=== PATIENT | male | born 1985 | race Two or more races ===

== ENCOUNTER 2024-07-30 06:17 | Emergency (ER) | payer MEDICAID, OTHER ==
[~2024-07-30] VITALS: Ht 188 cm; Wt 90.7 kg
[2024-07-30] MEDS: IV NS 0.9% 1,000 ML BAG IV ONE (06:34)
[2024-07-30 06:58] LABS: BASOPHILS % (AUTO) 0.1 % (0.0-2.0); HEMATOCRIT 42 % (39-51); HEMOGLOBIN 13.8 g/dL (13.5-17.5); LYMPHOCYTES # (AUTO) 2.4 K/uL (0.8-4.8); LYMPHOCYTES % (AUTO) 17.1 % (20.0-44.0); MEAN CORPUSCULAR HEMOGLOBIN 29 PG (26.0-33.0); MEAN CORPUSCULAR HGB CONC 33 g/dl (31.0-36.0); MEAN CORPUSCULAR VOLUME 86 fL (80-96); MONOCYTES # (AUTO) 0.7 K/uL (0.1-1.30); MONOCYTES % (AUTO) 5.1 % (2.0-12.0); NEUTROPHILS # (AUTO) 10.9 K/uL (1.8-8.9); NEUTROPHILS % (AUTO) 77.7 % (43.0-81.0); PLATELET COUNT (AUTO) 327 K/uL (150-450); RED BLOOD CELL COUNT(AUTO) 4.83 MIL/uL (4.5-6.0); RED CELL DISTRIBUTION WIDTH 14.7 % (11.5-15.0); WHITE BLOOD COUNT (AUTO) 14.1 K/uL (4.3-11.0)
[2024-07-30 07:11] LABS: ALCOHOL, BLOOD < 3 mg/dL (0-10); CALCIUM, SERUM 9.2 mg/dL (8.5-10.1); CREATININE 1.7 mg/dL (0.6-1.3); GLUCOSE 189 mg/dL (74-106)
[2024-07-30] MEDS ORDERED: ONDANSETRON HCL/PF 4 MG/2 ML VIAL ONE ×3 (07:20→16:07)
[2024-07-30 07:21] LABS: CARBON DIOXIDE 18 mmol/L (21-32); CHLORIDE 94 mmol/L (98-107); SODIUM SERUM 133 mmol/L (136-145); UREA NITROGEN, BLOOD 16 mg/dL (7-18)
[2024-07-30] MEDS: ONDANSETRON HCL/PF - ER 4 MG/2 ML VIAL IV ONE ×3 (07:26→16:13)
[2024-07-30] MEDS: POTASSIUM CHLORIDE 20 MEQ TAB.PRT.SR PO ONE (08:07)
[2024-07-30 08:12] LABS: AMPHETAMINE, URINE NEGATIVE (NEGATIVE); BARBITURATE, URINE NEGATIVE (NEGATIVE); BENZODIAZEPINE, URINE NEGATIVE (NEGATIVE); CANNABINOID, URINE POSITIVE (NEGATIVE); COCCAINE, URINE NEGATIVE (NEGATIVE); OPIATE, URINE NEGATIVE (NEGATIVE); PHENCYCLIDINE SCREEN,URINE NEGATIVE (NEGATIVE)
[2024-07-30] MEDS ORDERED: CHLORDIAZEPOXIDE HCL 25 MG CAPSULE ONE (09:18)
[2024-07-30] MEDS: CHLORDIAZEPOXIDE HCL 25 MG CAPSULE PO STA (09:19)
[2024-07-30] MEDS ORDERED: METH10TA2 PO (09:26)
[2024-07-30] MEDS ORDERED: IRBE1TAB43 PO (09:26)
[2024-07-30] MEDS ORDERED: ALPR1TAB2 PO (09:26)
[2024-07-30] MEDS ORDERED: ACETAMINOPHEN ES 500 MG TABLET ONE (13:38)
[2024-07-30] MEDS: ACETAMINOPHEN ES 500 MG TABLET PO ONE (13:50)
[2024-07-30 14:57] VITALS: BP 119/71; O2SAT 99
== END 2024-07-30 16:16 | disposition short-term general hospital (02) ==
LOC: ER 06:19
DX: R56.9 Unspecified convulsions (principal); Z20.822 Contact with and (suspected) exposure to COVID-19
CPT/HCPCS: 99285; 96374; 96361; 93005; 96376; 70450; 85025; 80048; 36415; 87426; 80320; 80307; J2405 ×3; J7030; G0480

== ENCOUNTER 2025-07-19 06:03 | Emergency (ER) | payer MEDICAID ==
[~2025-07-19] VITALS: Ht 188 cm; Wt 95.3 kg
[~2025-07-19 06:03] MED LIST: ALPR1TAB2 PO; IRBE1TAB43 PO; METH10TA2 PO
[2025-07-19] MEDS ORDERED: GABAPENTIN 300 MG CAPSULE ONE (07:06)
[2025-07-19] MEDS ORDERED: ONDANSETRON HCL/PF 4 MG/2 ML VIAL ONE (07:06)
[2025-07-19] MEDS: GABAPENTIN 100 MG CAPSULE PO ONE (07:07)
[2025-07-19] MEDS: ONDANSETRON HCL/PF 4 MG/2 ML VIAL IVP ONE (07:07)
[2025-07-19] MEDS: IV NS 0.9% 1,000 ML BAG IV ONE (07:07)
[2025-07-19 07:11] LABS: PLATELET COUNT (AUTO) 216 K/uL (150-450); RED BLOOD CELL COUNT(AUTO) 4.69 MIL/uL (4.5-6.0); RED CELL DISTRIBUTION WIDTH 14.4 % (11.5-15.0); WHITE BLOOD COUNT (AUTO) 7.1 K/uL (4.3-11.0)
[2025-07-19 07:21] LABS: CALCIUM, SERUM 8.9 mg/dL (8.5-10.1); CREATININE 1.3 mg/dL (0.6-1.3); SODIUM SERUM 142.0 mmol/L (136-145); UREA NITROGEN, BLOOD 12.0 mg/dL (7-18)
[2025-07-19 07:27] LABS: ASPARTATE AMINOTRANSFERASE 25.0 U/L (15-37); TOTAL PROTEIN, SERUM 7.5 g/dL (6.4-8.2)
[2025-07-19] MEDS ORDERED: GABA600T12 PO (07:42)
[2025-07-19] MEDS ORDERED: ONDA4TAB5 PO (07:42)
[2025-07-19 07:56] VITALS: BP 170/98; TEMP 98.3; O2SAT 98
== END 2025-07-19 08:26 | disposition home or self-care (01) ==
LOC: ER 06:10
DX: R11.2 Nausea with vomiting, unspecified (principal); R19.7 Diarrhea, unspecified; F41.9 Anxiety disorder, unspecified; Z79.899 Other long term (current) drug therapy; Z87.820 Personal history of traumatic brain injury
CPT/HCPCS: 36415; 71045-TC; 80048-TC; 80076-TC; 83690-TC; 84443-TC; 85025-TC; J2405; J7030